=== PATIENT | female | born 1985 | race Caucasian/White ===

== ENCOUNTER 2018-06-05 10:26 | Outpatient (CLI) | payer MEDICAID ==
[~2018-06-05 10:26] MED LIST: ONDA8TAB9 PO
== END 2018-06-05 23:59 | disposition home or self-care (01) ==
LOC: RAD 10:26
DX: S09.90XA Unspecified injury of head, initial encounter (principal); R55 Syncope and collapse; R42 Dizziness and giddiness; H53.8 Other visual disturbances; R41.3 Other amnesia; F17.200 Nicotine dependence, unspecified, uncomplicated; X58.XXXA Exposure to other specified factors, initial encounter; Y93.89 Activity, other specified; Y92.89 Other specified places as the place of occurrence of the external cause; Y99.8 Other external cause status
CPT/HCPCS: 95819

== ENCOUNTER 2025-08-25 13:39 | Emergency (ER) | payer MEDICAID ==
[~2025-08-25] VITALS: Ht 167.6 cm; Wt 105.0 kg
[2025-08-25] MEDS ORDERED: KETO10TA2 PO (14:25)
[2025-08-25] MEDS ORDERED: OMEP20CA16 PO (14:25)
--- NOTE | 2025-08-25 14:27 | RADIOLOGY REPORT ---
EXAM: CT CT HEAD INDICATION: headstrike TECHNIQUE: CT of the head without intravenous contrast. Radiation Dose : 1. Head: CT Dose: CTDI volume is 61 mGy. Dose-length product is 1082 mGy*cm The dose indicators for CT are the volume Computed Tomography (CT) Dose Index (CTDIvol) and the Dose Length Product (DLP), and are measured in units of mGy and mGy-cm, respectively. These indicators are not patient dose, but values generated from the CT scanner acquisition factors. The report includes radiation exposure data for exposures received during this examination. COMPARISON: None FINDINGS: There is no evidence of acute intracranial hemorrhage, extra-axial collection, mass effect, midline shift, herniation or hydrocephalus. The ventricles, sulci and cisterns are age appropriate. The melvin-white differentiation is intact. Patchy periventricular and subcortical white matter hypoattenuation is nonspecific but may be related to small vessel ischemic disease. The visualized paranasal sinuses and mastoid air cells are clear. The surrounding soft tissues and osseous structures are unremarkable. IMPRESSION: No acute intracranial abnormality. Radiation optimization: All CT scans at this facility use at least one of these dose optimization techniques: automated exposure control mA and/or kV adjustment per patient size (includes targeted exams where dose is matched to clinical indication) or iterative reconstruction.
--- NOTE | 2025-08-25 16:13 | Physician Documentation ---
History of Present Illness ~ Chief Complaint: Head Injury Stated Complaint: HEAD SWELLING Time Seen by MD: 13:55 OK to notify your PCP?: Yes Primary Medical Doctor: None HPI This is a 40-year-old female with a prior history of TBI in 2004, residual recurrent speech impediment that occurs when she re-injured her head or occurs spontaneously, presents today for evaluation of potential injury when she accidentally here had enough shelf. This occurred yesterday. Ever since the injury she had developed stuttering, sensation of her forehead swelling, and occipital headache as well as difficulty getting her words out. The particular palliating or aggravating factors. Did not attempt to treat it with a any [id number] medication. Similar to prior episodes of swelling of the forehead and headache that occur when she re-injured her head. Denies any focal neurologic deficits. She does report nausea without vomiting. Treat it it with Zofran. Denies any other symptoms. Denies any concerns for tobacco, alcohol or illicit substances use Tetanus within 5 years?: No Medication Reconciliation Allergies: Coded Allergies: No Known Allergies (Unverified , 06/22/17) Scheduled Omeprazole (Omeprazole), 1 CAP PO QAM, (Reported) Scheduled PRN Ketorolac Tromethamine (Ketorolac Tromethamine), 1 TAB PO Q6H PRN PRN for pain, (Reported) Ondansetron (Zofran Odt), 8 MG PO QID PRN for nausea/vomiting Past Medical History Past Medical History: *[employer]* Past Surgical History: orthopedic surgeries Smoking Status: Current every day smoker Alcohol Use: None Drug Use: none Lives In: Home Review of Systems ROS 10 point review of systems was performed and unless noted above in HPI is negative for acute process/complaint. Physical Exam Vital Signs: Temperature: 98.6, Source: Oral, Heart Rate: 67, Respiratory Rate: 12, BP: 119/89, Pulse Oximetry: 100, Weight: 105.000 Oxygen Flow Rate: 0 Physical Exam GENERAL: Awake, alert, oriented, GCS 15, no apparent distress, non-toxic appearing, answers questions, follows commands appropriately. Examined in triage, placed in bed 11, accompanied by has whitney. HEENT: Atraumatic, normocephalic, pupils equal, extraocular muscles intact, sclerae anicteric, mucus membranes moist, oropharynx is clear, no stridor. NECK: supple, full active range of motion, trachea midline, no thyromegaly, no lymphadenopathy, no JVD. CARDIOVASCULAR: regular rate/rhythm, no murmurs/gallops/rubs, Pulses are 2+ in all extremities and symmetric. Capillary refill less than 2 seconds. PULMONARY: Nonlabored, good air movement ,no respiratory distress, speaking in full sentences, clear to auscultation bilaterally, no wheezing, no ronchi, no rales, no accessory muscle use. GASTROINTESTINAL: Soft, non-tender, non-distended, normal active bowel sounds, no organomegaly, no pulsatile masses, no CVA tenderness. NEUROLOGIC: Lucid with normal mental status. Normal facial symmetry. There is preserved sensation in V1 through V3 dermatomes, cranial nerves 2-12 are intact, cranial nerve 1 is not tested. Bilateral upper and lower extremities are 5/5 strength in all major muscle groups as well as preserved and equal sensation in all dermatomes. Normal gait. No ataxia. No evidence of dysmetria. MUSCULOSKELETAL: There is full range of motion of all extremities. There is no joint pain or joint swelling or joint erythema. There is no muscle pain or tenderness or swelling. EXTREMITIES: warm, well-perfused, no cyanosis, no clubbing, no edema, no acute deformities. Skin: warm, dry, no rashes or lesions, no jaundice, no petechiae orpurpura. No ecchymosis. PSYCHIATRIC: Normal affect, normal insight, normal concentration. Focused exam: [] Progress Results/Orders Results/Orders Orders - RIANA ALLISON DO Ct Head (08/25/25 13:56) Completed Orders - RIANA ALLISON DO Ct Head (08/25/25 13:56) Prochlorperazine Inj (Compazine Inj) (08/25/25 14:00) Medications Received in ER Medications (Trade) Dose Ordered Sig/Dave Route PRN Reason Start Time Stop Time Status Last Admin Dose Admin (Compazine inj) 10 mg ONCE ONCE IM 08/25/25 14:00 08/25/25 14:01 DC 08/25/25 14:49 10 MG Vital Signs 08/25/25 08/25/25 13:46 14:25 Temp 98.6 Pulse 87 67 Resp 16 12 B/P (MAP) 156/115 119/89 (99) Pulse Ox 99 100 O2 Flow Rate 0 0 Medical Decision Making Additional information obtaine: family Findings Facility Status: ED Holds, RME process The plan was discussed with the patient, who demonstrates clear understanding of the plan and is in agreement with the plan unless otherwise noted in the chart. All questions have been answered, all concerns were addressed unless otherwise documented. I was available throughout their ED stay for frequent reassessment and questions. Differential Diagnoses (considered and possible or likely): [Closed head injury, concussion, migraine, tension headache, less likely cluster headache, less likely trigeminal neuralgia, less likely subdural or subarachnoid, less likely skull fracture. Nausea without vomiting could be result of concussion. Exacerbation of TBI had also been considered.] ??Differential Diagnoses (considered and unlikely, not requiring evaluation currently): [No evidence of lateralizing signs to suspect a stroke] MDM Data Please see [facility] for the following: Independent Historians and external Records Review. Historian: [Patient] Independent Historians: ?[Has been] Medication Management: [Reviewed medication list] Social History and determinants: [Reviewed] Please see the body of the note for the following: Any independent interpretations of ECG, imaging studies. All vitals signs/haemodynamics, ordered tests were independently reviewed and interpreted by myself. Nursing triage complaint and vitals reviewed, additional nursing notes were reviewed as available and I agree unless otherwise noted or documented in contradiction in the chart Vital Signs: Independently reviewed Labs: Independently interpreted Imaging: Independently interpreted Old Medical Records: Independently reviewed, see [facility] for relevant summary and information Additionally notably showing: [Hemodynamically stable. CT is unremarkable, no acute intracranial process.] Tests considered but not ordered include: [Hematologic workup has been considered but does not appear to be necessary given mechanical nature of the injury.] Social Determinants of Health Impact: Patient was evaluated in [facility], or [facility] [place] to healthcare due to below par ratio of patient to medical providers. [] Comorbid Conditions Impacting Present Evaluation and Care/Treatment: History of TBI] Management Discussions with other Healthcare Providers: [None] Treatment and Disposition Medication Management (Given or considered): [Compazine IM for nausea]. See EMR for details Consideration for Hospitalization/Escalation/Deescalation of Care: Admission for observation has been considered, [however the patient is able to tolerate p.o., their symptoms are controlled, they are able to rely on oral medications, and their chief complaint/diagnosis can be managed on outpatient basis.] ?ED Course:?[No clinical deterioration] ?Shared decision making:?[Patient is hemodynamically stable for discharge home with follow with their primary care provider. [ ] Specific and cautious return precautions provided and discussed with full understanding. Any incidental find ings were also discussed and follow up recommendations given. [] All questions answered. Patient/family were able to verbalize back return precautions. Patient/family agree to plan. Copies of imaging and laboratory studies were provided.] Code status:?FULL Please see the full Electronic Medical Record for full details of nursing documentation, medications list, other records of complete past medical history and conditions, vital signs, laboratory studies, and any radiologic study interpretations by radiologists. Portions of this note were completed using [employer] dictation software and as a result there may exist minor errors in sp elling. I have reviewed elements of past family and social history and agree as included in note. Differential Dx:Considerations: Include: Closed head injury, Skull facture, Personality disorder; Unlikey: Foreign body, Intoxication-alcohol, Intoxication- other drug, Non-accidental trauma Departure Disposition: 01 HOME / SELF CARE / HOMELESS Impression: Primary Impression: Concussion Additional Impressions: History of traumatic brain injury Nausea Condition: Improved Discharge Instructions: Post Concussion Syndrome,Adult Referrals: NO PRIMARY CARE PROVIDER (PCP) Signature Scribe Signature: No scribe Attestation: Date: Aug 25, 2025 Time: 16:13 This note accurately reflects clinical decisions, work performed by myself, DO ESTEFANY Franz NICHOLAS M DO Aug 25, 2025 16:13
[2025-08-25 16:57] VITALS: BP 125/87; PULSE 71; RESP 17; TEMP 98.6; O2SAT 98
== END 2025-08-25 17:04 | disposition home or self-care (01) ==
LOC: ER 13:40
DX: S06.0XAA Concussion with loss of consciousness status unknown, initial encounter (principal); R11.0 Nausea; F17.200 Nicotine dependence, unspecified, uncomplicated; Z79.899 Other long term (current) drug therapy; X58.XXXA Exposure to other specified factors, initial encounter; Y93.89 Activity, other specified; Y92.89 Other specified places as the place of occurrence of the external cause; Y99.8 Other external cause status
CPT/HCPCS: 70450; 96372; 99285; J0780